=== PATIENT | female | born 1950 | race Two or more races ===

== ENCOUNTER 2020-09-17 13:04 | Emergency (ER) | payer MEDICARE, OTHER ==
[~2020-09-17] VITALS: Ht 165.1 cm; Wt 124.7 kg
[~2020-09-17 13:04] MED LIST: BENA20TA9 PO; GABA-534 PO; MORP15TA7 PO
[2020-09-17 13:13] VITALS: BP 125/67
--- NOTE | 2020-09-17 13:38 | NUR ---
ENVIRONMENT ARTIST AT BEDSIDE FOR XRAY.
[2020-09-17] MEDS ORDERED: AZIT250T PO (15:35)
--- NOTE | 2020-09-17 15:39 | NUR ---
Patient discharged to home in stable condition. Written and verbal after care instructions given. Patient verbalizes understanding of instruction.
== END 2020-09-17 15:40 | disposition home or self-care (01) ==
LOC: ER 13:22
DX: J02.9 Acute pharyngitis, unspecified (principal); R05 Cough; Z20.822 Contact with and (suspected) exposure to COVID-19; I11.9 Hypertensive heart disease without heart failure
CPT/HCPCS: 71045-TC; C9803

== ENCOUNTER 2024-10-28 21:46 | Emergency (ER) | payer MEDICARE, OTHER ==
[~2024-10-28] VITALS: Ht 170.2 cm; Wt 113.4 kg
[~2024-10-28 21:46] MED LIST changes: +AZIT250T PO
[2024-10-28] MEDS ORDERED: HYDROCODONE/APAP 5/325MG TABLET ONE (22:30)
[2024-10-28] MEDS: HYDROCODONE/APAP 5/325MG TABLET PO ONE (22:36)
[2024-10-29 00:23] VITALS: BP 111/74; TEMP 97.9; O2SAT 99
== END 2024-10-29 00:23 | disposition home or self-care (01) ==
LOC: ER 22:56
DX: S30.0XXA Contusion of lower back and pelvis, initial encounter (principal); S43.491A Other sprain of right shoulder joint, initial encounter; I10 Essential (primary) hypertension; Z79.899 Other long term (current) drug therapy; Z87.39 Personal history of other diseases of the musculoskeletal system and connective tissue; W18.39XA Other fall on same level, initial encounter; Y93.89 Activity, other specified; Y92.488 Other paved roadways as the place of occurrence of the external cause; Y99.8 Other external cause status
CPT/HCPCS: 72220-TC; 73030-TC